=== PATIENT | male | born 1965 | race African-American/Black ===

== ENCOUNTER 2022-07-15 12:48 | Emergency (ER) | payer SELFPAY ==
[~2022-07-15] VITALS: Ht 172.7 cm; Wt 93.0 kg
[2022-07-15] MEDS ORDERED: ACETAMINOPHEN 325MG TABLET PO ONE (13:15)
[2022-07-15] MEDS ORDERED: LIDOCAINE HCL 1% 20ML VIAL (Pyxis) INJ INFIL ONE (14:30)
[2022-07-15] MEDS ORDERED: HYDROCODONE/ACETAMINOPHEN 5/325MG TABLET PO ONE (15:45)
[2022-07-15 15:48] VITALS: BP_DIAS 88
[2022-07-15] MEDS ORDERED: LIDOCAINE HCL 1% 10 MG/ML 10ML VIAL IJ NR (16:30)
[2022-07-15] MEDS ORDERED: LIDOCAINE HCL 1% 20ML VIAL (Pyxis) INJ INFIL NR (16:30)
[2022-07-15] MEDS ORDERED: HYDR-4001 MT (18:00)
[2022-07-15 18:20] VITALS: BP_SYST 140
== END 2022-07-15 18:21 | disposition home or self-care (01) ==
LOC: ER 12:48
DX: S62.307A Unspecified fracture of fifth metacarpal bone, left hand, initial encounter for closed fracture (principal); I10 Essential (primary) hypertension; Z98.890 Other specified postprocedural states; V49.9XXA Car occupant (driver) (passenger) injured in unspecified traffic accident, initial encounter; Y93.89 Activity, other specified; Y92.89 Other specified places as the place of occurrence of the external cause; Y99.8 Other external cause status
CPT/HCPCS: 29105; 71046; 72100; 73100; 73120; 73560; 73600; 99284; J3490; Z7610

== ENCOUNTER 2023-10-15 00:04 | Emergency (ER) | payer SELFPAY ==
[~2023-10-15] VITALS: Ht 172.7 cm; Wt 95.0 kg
[~2023-10-15 00:04] MED LIST: HYDR-4001 MT
[2023-10-15 00:09] VITALS: BP 136/90; PULSE 75; RESP 18; TEMP 98.2; O2SAT 98
[2023-10-15] MEDS ORDERED: ASPIRIN 325MG EC TABLET PO ONE (00:15)
[2023-10-15 00:57] LABS: BASOPHILS % 0.1 % (0.0-2.0); EOSINOPHILS % 0.1 % (0.0-5.0); HEMATOCRIT. 35.3 % (42.0-52.0); HEMOGLOBIN. 11.3 g/dL (14.0-18.0); LYMPHOCYTES % 11.6 % (20.0-50.0); MEAN CORPUSCULAR HEMOGLOBIN 27.2 pg (28.0-32.0); MEAN CORPUSCULAR HGB CONC 32.1 g/dL (31.0-37.0); MEAN CORPUSCULAR VOLUME 84.7 fL (80.0-94.0); MEAN PLATELET VOLUME 8.7 fl (7.4-10.4); MONOCYTES % 6.9 % (2.0-8.0); NEUTROPHILS % 81.3 % (40.0-76.0); PLATELET 400 x1000/uL (130-400); RED BLOOD CELL COUNT 4.17 mill/uL (4.7-6.1); RED CELL DISTRIBUTION WIDTH 15.4 % (11.6-14.6); WHITE BLOOD COUNT 13.9 x1000/uL (4.5-11.0)
[2023-10-15 01:19] LABS: ALANINE AMINOTRANSFERASE 36 IU/L (10-49); ALBUMIN 3.8 g/dL (3.2-4.8); ASPARTATE AMINOTRANSFERASE 40 IU/L (<34); BILIRUBIN TOTAL 0.4 mg/dL (0.1-1.0); CARBON DIOXIDE 30 mEq/L (21-32); CHLORIDE 104 mEq/L (98-107); CREATININE 0.7 mg/dL (0.6-1.3); GLUCOSE 119 mg/dL (70-105); POTASSIUM 3.5 mEq/L (3.5-5.1); PROTEIN TOTAL 7.7 g/dL (6.0-8.3); SODIUM 139 mEq/L (136-145); TROPONIN I HIGH SENSITIVITY 4 ng/L (3.0-53); UREA NITROGEN BLOOD 21 mg/dL (9-23)
[2023-10-15] MEDS ORDERED: ACET-2708 MT (02:37)
[2023-10-15] MEDS ORDERED: ALBU6.7H15 INH (02:37)
[2023-10-15] MEDS ORDERED: ASPIRIN 325MG EC TABLET PO NR (04:45)
== END 2023-10-15 01:50 | disposition home or self-care (01) ==
LOC: ER 00:20
DX: T59.3X3A Toxic effect of lacrimogenic gas, assault, initial encounter (principal); R07.89 Other chest pain; R06.02 Shortness of breath; I10 Essential (primary) hypertension; X58.XXXA Exposure to other specified factors, initial encounter
CPT/HCPCS: 36415; 71045; 80053; 83880; 84484; 85025; 93005; 99285

== ENCOUNTER 2023-10-23 12:20 | Emergency (ER) | payer SELFPAY ==
[~2023-10-23] VITALS: Ht 182.9 cm; Wt 88.0 kg
[~2023-10-23 12:20] MED LIST changes: +ACET-2708 MT; +ALBU6.7H15 INH
[2023-10-23 12:27] VITALS: TEMP 98.4; O2SAT 98
[2023-10-23] MEDS ORDERED: KETOROLAC 60MG/2ML VIAL IM STA (12:57)
[2023-10-23 13:32] VITALS: BP 134/68; PULSE 90; RESP 16
[2023-10-23] MEDS ORDERED: IBUP-2029 MT (15:34)
[2023-10-23] MEDS ORDERED: CYCL10TA21 MT (15:34)
== END 2023-10-23 16:19 | disposition home or self-care (01) ==
LOC: ER 12:20
DX: R51.9 Headache, unspecified (principal); M54.2 Cervicalgia; J45.909 Unspecified asthma, uncomplicated; I10 Essential (primary) hypertension
CPT/HCPCS: 99285; 70450; 71045; 72125; 96372; J1885